=== PATIENT | female | born 1970 | race Caucasian/White ===

== ENCOUNTER → 2018-04-03 06:28 | Outpatient (CLI) | payer OTHER, SELFPAY ==
[2018-04-03 07:26] LABS: Erythrocyte Sedimentation Rate 32 mm/hr (0-20)
[2018-04-03 07:28] LABS: Absolute Lymphocyte Count 2.63 X10^3/ul (0.83-4.51); Absolute Neutrophil Count 3.4 X10^3/uL (2.0-7.7); Basophil# 0.03 X10^3/uL; Basophil% 0.5 % (0-1); Eosinophil# 0.19 X10^3/uL; Eosinophils% 2.9 % (0-5); Hematocrit 41.4 % (37-47); Hemoglobin 13.4 g/dl (12.0-15.0); Lymphocyte # 2.63 X10^3/ul (4.0); Lymphocyte % 39.7 % (19-41); Mean Corp Hgb Conc 32.4 g/gl (32-36); Mean Corpuscular Hgb 28.8 pg (27.0-32.0); Mean Corpuscular Volume 88.8 fL (81-99); Mean Platelet Vol. 11.1 fl (6.2-12.0); Monocyte# 0.41 X10^3/uL; Monocyte% 6.2 % (0-10); Neutrophil # 3.35 X10^3/uL (2.7-7.7); Neutrophil % 50.5 % (47-70); POSITIVE COUNT NO; POSITIVE DIFFERENTIAL NO; POSITIVE MORPHOLOGY NO; Platelet Count 305 K/mm3 (150-450); RBC Distribution Width CV 13.2 % (11.6-14.6); RBC Distribution Width SD 42.6 fl (35.1-43.9); Red Blood Count 4.66 M/mm3 (4.2-5.4); White Blood Count 6.6 K/mm3 (4.4-11.0)
[2018-04-03 07:54] LABS: ALB/GLOB Ratio 0.8 RATIO (0.9-2.4); AST(SGOT) 33 U/L (15-37); Alanine Aminotransfer ALT/SGPT 45 U/L (13-56); Albumin, Serum 3.2 g/dL (3.2-5.0); Alkaline Phosphatase 101 U/L (45-117); Anion Gap 7 (5-15); BUN 10 mg/dL (7-18); BUN/Creat Ratio 14.4 RATIO (10-20); Calcium,Total 8.5 mg/dL (8.5-10.1); Chloride 104 mmol/L (98-107); EST Glomerular Filtration Rate 97 mL/min (>60); Est Glom Filt Rate - Afr Amer 117 mL/min (>60); Globulin 3.8 g/dL (2.2-4.2); Glucose 108 mg/dL (74-106); Potassium 4.2 mmol/L (3.5-5.1); Rheumatoid Factor < 10.0 IU/mL (<15); Sodium Level 140 mmol/L (136-145); T4 Total, Thyroxin 5.9 ug/dL (4.8-13.9); Thyroid Stim Hormone (TSH) 2.66 uIU/mL (0.358-3.74)
[2018-04-09 10:43] LABS: ANTINUCLEAR ANTIBODIES DIRECT Negative (Negative)
== END ==
PROVIDERS: Visit Provider Physician Assistant
DX: E03.9 Hypothyroidism, unspecified (principal); R63.5 Abnormal weight gain; M13.0 Polyarthritis, unspecified
CPT/HCPCS: 36415; 80053; 84436; 84443; 85025; 85652; 86038; 86140; 86431

== ENCOUNTER → 2018-10-15 11:46 | Outpatient (CLI) | payer OTHER, SELFPAY ==
[2018-10-15 10:48] VITALS: BMI 48.9
[2018-10-15 13:21] LABS: Free T3 2.8 pg/mL (2.18-3.98); T4 Free Direct 1.12 ng/dL (0.76-1.46)
== END ==
PROVIDERS: Referring Provider Nurse Practitioner; Visit Provider Nurse Practitioner
DX: E03.9 Hypothyroidism, unspecified (principal)
CPT/HCPCS: 36415; 84439; 84443; 84481

== ENCOUNTER → 2019-01-18 12:08 | Outpatient (CLI) | payer OTHER, SELFPAY ==
[2018-10-15 10:48] VITALS: BMI 48.9
[2019-01-18 14:05] LABS: Free T3 2.5 pg/mL (2.18-3.98); T4 Free Direct 1.12 ng/dL (0.76-1.46); Thyroid Stim Hormone (TSH) 1.32 uIU/mL (0.358-3.74)
== END ==
PROVIDERS: Referring Provider Nurse Practitioner; Visit Provider Nurse Practitioner
DX: E03.9 Hypothyroidism, unspecified (principal)
CPT/HCPCS: 36415; 84439; 84443; 84481

== ENCOUNTER → 2019-06-30 16:43 | Outpatient (CLI) | payer OTHER, SELFPAY ==
[2018-10-15 10:48] VITALS: BMI 48.9
--- NOTE | 2019-06-30 16:59 | EKG12_ITS ---
Test Reason : PRE-OP Blood Pressure : / mmHG Vent. Rate : 075 BPM Atrial Rate : 075 BPM P-R Int : 166 ms QRS Dur : 088 ms QT Int : 370 ms P-R-T Axes : 032 [id number] 007 degrees QTc Int : 413 ms Normal sinus rhythm Normal ECG No previous ECGs available Confirmed by ONEAL BLAND, ANDRE ([id number]), commissioning editor FORTUNATO MURGUIA ([id number]) on 07/05/2019 1:29:18 PM Referred By: Chadwick Zheng Confirmed By:ANDRE NO MD
[2019-06-30 17:15] LABS: Absolute Lymphocyte Count 3.83 X10^3/uL (0.83-4.51); Absolute Neutrophil Count 5.1 X10^3/uL (2.0-7.7); Basophil# 0.06 X10^3/uL; Basophil% 0.6 % (0-1); Eosinophil# 0.19 X10^3/uL; Hematocrit 43.9 % (37-47); Hemoglobin 14.1 g/dL (12.0-15.0); Lymphocyte # 3.83 X10^3/ul (4.0); Lymphocyte % 39.3 % (19-41); Mean Corp Hgb Conc 32.1 g/dL (32-36); Mean Corpuscular Hgb 28.8 pg (27.0-32.0); Mean Corpuscular Volume 89.6 fL (81-99); Mean Platelet Vol. 10.9 fl (6.2-12.0); Monocyte% 5.1 % (0-10); NRBC Flagged by Analyzer 0 % (0-5); Neutrophil # 5.13 X10^3/uL (2.7-7.7); Neutrophil % 52.7 % (47-70); Platelet Count 298 K/mm3 (150-450); RBC Distribution Width CV 12.1 % (11.6-14.6); RBC Distribution Width SD 39.7 fl (35.1-43.9); White Blood Count 9.7 K/mm3 (4.4-11.0)
[2019-06-30 18:16] LABS: Anion Gap 9 (5-15); BUN 16 mg/dL (7-18); BUN/Creat Ratio 12.6 RATIO (10-20); Calcium,Total 9.1 mg/dL (8.5-10.1); Chloride 104 mmol/L (98-107); Creatinine, Serum 1.27 mg/dL (0.55-1.02); EST Glomerular Filtration Rate 48 mL/min (>60); Est Glom Filt Rate - Afr Amer 58 mL/min (>60); Glucose 87 mg/dL (74-106); Sodium Level 140 mmol/L (136-145)
== END ==
PROVIDERS: Referring Provider Orthopaedic Surgery; Visit Provider Orthopaedic Surgery
DX: Z01.810 Encounter for preprocedural cardiovascular examination (principal); Z01.818 Encounter for other preprocedural examination
CPT/HCPCS: 36415; 80048; 85025; 93005

== ENCOUNTER → 2019-12-21 07:58 | Outpatient (CLI) | payer OTHER, SELFPAY ==
[2018-10-15 10:48] VITALS: BMI 48.9
[2019-12-21 09:42] LABS: T4 Free Direct 1.06 ng/dL (0.76-1.46); Thyroid Stim Hormone (TSH) 1.75 uIU/mL (0.358-3.74)
== END ==
PROVIDERS: Referring Provider Nurse Practitioner; Visit Provider Nurse Practitioner
DX: E03.9 Hypothyroidism, unspecified (principal)
CPT/HCPCS: 36415; 84439; 84443

== ENCOUNTER → 2019-12-28 14:14 | Outpatient (CLI) | payer OTHER, SELFPAY ==
[2018-10-15 10:48] VITALS: BMI 48.9
--- NOTE | 2019-12-28 14:18 | US_ITS ---
STUDY: THYROID ULTRASOUND REASON FOR EXAM: Female, 49 years old. HYPOTHYROIDISM TECHNIQUE: Ultrasound evaluation of the thyroid was performed with real-time and static phillips-scale imaging. COMPARISON: None. FINDINGS: RIGHT LOBE: The right lobe of the thyroid gland measures 4 x 1.3 x 1.5 cm. There is a heterogeneous echotexture. 2 complex nodules are noted, largest one measuring 1.2 x 0.7 x 0.8 cm in the lower pole. LEFT LOBE: The left lobe of the thyroid gland measures 4.2 x 1.4 x 1.5 cm. There is a heterogeneous echotexture. 2 complex nodules are noted, largest is in the mid pole measuring 1.0 x 0.8 x 0.5 cm. ISTHMUS: The isthmus measures 2 mm. Complex nodule measuring 5 x 2 x 3 mm The regional lymph nodes are normal. US/Thyroid IMPRESSION: Heterogeneous echotexture of the thyroid diffusely. Small complex nodules as above. Electronically Signed: Elie Rubio DO at 15:05 EST Tel , Service support ,
== END ==
PROVIDERS: Referring Provider Nurse Practitioner; Visit Provider Nurse Practitioner
DX: E03.9 Hypothyroidism, unspecified (principal)
CPT/HCPCS: 76536

== ENCOUNTER → 2021-05-28 15:25 | Outpatient (CLI) | payer OTHER, SELFPAY ==
[2021-05-28 14:41] VITALS: BMI 48.9
[2021-05-28 17:18] LABS: T4 Free Direct 0.95 ng/dL (0.76-1.46)
[2021-05-28 17:29] LABS: Erythrocyte Sedimentation Rate 14 mm/hr (0-30)
[2021-05-28 17:38] LABS: Vitamin B12 849 pg/mL (211-911); Vitamin D,25 Hydroxy 58.7 ng/mL
[2021-05-30 10:22] LABS: Thyroid Peroxidase AB < 8 IU/mL (0-34)
== END ==
PROVIDERS: Visit Provider Internal Medicine Endocrinology, Diabetes & Metabolism
DX: E04.2 Nontoxic multinodular goiter (principal); M79.601 Pain in right arm; M79.602 Pain in left arm; R20.2 Paresthesia of skin; M25.50 Pain in unspecified joint; E55.9 Vitamin D deficiency, unspecified
CPT/HCPCS: 36415; 82306; 82607; 84439; 84443; 85652; 86376

== ENCOUNTER → 2021-06-04 14:17 | Outpatient (CLI) | payer OTHER, SELFPAY ==
[2021-05-28 14:41] VITALS: BMI 48.9
--- NOTE | 2021-06-04 14:20 | US_ITS ---
STUDY: THYROID ULTRASOUND REASON FOR EXAM: Female, 50 years old. goiter follow up -- Please include TI-RADs TECHNIQUE: Ultrasound evaluation of the thyroid was performed with real-time and static phillips-scale imaging. COMPARISON: 12/28/2019. FINDINGS: RIGHT LOBE: The right lobe of the thyroid gland measures 4.3 x 1.8 x 1.9 cm. There is a homogeneous echotexture. Within the right thyroid lobe there are 2 hypoechoic nodules measuring 0.9 x 0.7 x 0.8 cm and 1.1 x 0.8 x 0.9 cm. These are seen at the level of the lower pole and are stable in the interval. These reveal peripheral nodular flow. The margins are irregular. LEFT LOBE: The left lobe of the thyroid gland measures 3.4 x 1.7 x 1.5 cm. There is a homogeneous echotexture. Within the upper pole of the left thyroid lobe there are 2 nodules identified with solid echotexture decreased echogenicity measuring 0.6 x 0.5 x 0.4 cm and 1.1 x 0.8 x 0.9 cm. The margins are irregular. There is peripheral color flow. These are stable. ISTHMUS: The isthmus measures 4.0 mm. The regional lymph nodes are normal. US/Thyroid IMPRESSION: Stable bilateral thyroid lobe nodules as described. No new nodules identified. Note to be made that benign versus malignant nodules cannot be adequately determined without microscopic evaluation or documentation of stability. If indicated, follow-up recommended in 6-12 months. Electronically Signed: Heidi Covarrubias MD at 2:11 EDT , Service support ,
== END ==
PROVIDERS: Referring Provider Internal Medicine Endocrinology, Diabetes & Metabolism; Visit Provider Internal Medicine Endocrinology, Diabetes & Metabolism
DX: E04.2 Nontoxic multinodular goiter (principal)
CPT/HCPCS: 76536